=== PATIENT | female | born 1955 | race Caucasian/White ===

== ENCOUNTER 2022-08-27 15:48 | Emergency (ER) | payer MEDICARE, OTHER ==
--- OUTSIDE RECORDS SUMMARY | 2022-08-27 15:52 | XMS REPORT | Continuity of Care Document ---
:1955 Author Organization [facility] t Address [address] [place] [address] Care Team Providers Name Role Phone MICHELLE CHERRI Primary Care Physician Unavailable Hanna Atkinson MD Attending Clinician Marino German CRNA Attending Clinician Thomas Adhikari DPM, Ronald E Attending Clinician NAHUN ENGLISH JR Attending Clinician Unavailable Doctor Unassigned, [place] Attending Clinician Unavailable Pob, [facility] Attending Clinician Unavailable Thomas Adhikari DPM, Ronald E Admitting Clinician NAHUN ENGLISH JR Admitting Clinician Unavailable Payers Payer Name Policy Type Policy Number Effective Date Expiration Date [facility] [id number] 2016 2021 CHOICE 00:00:00 00:00:00 Problems Condition Condition Condition Status Onset Resolution Last Treating Co mments Source Name Details Category Date Date Treatment Clinician Date Gallstone Gallstone Disease Active Overview: Univers pancreatit pancreatit 803 [address] ity of is is 00:00: g of this [place] 00 note Medical might be Branch different from the original. Added automatic ally from request for surgery [id number] Hypokalemi Hypokalemi Disease Active U nivers a a 7-19 ity of 00:00: [place] 00 Medical Branch Nausea Nausea Disease Active 2014-06 Univers 2-10 ity of 00:00: [place] 00 [facility] Abdominal Abdominal Disease Active 2014-06 Uni vers pain pain 2-10 ity of 00:00: [place] 00 [facility] Obesity Obesity Disease Active 2014-06 Univers 2-10 ity of 00:00: [place] 00 [facility] Pancreatit Pancreatit Disease Active 2014-06 U nivers is, is, 2-10 ity [place] [facility] Peripancre Peripancre Disease Active 2014-06 U nivers atic fluid atic fluid 22 it y of [place] [facility] Allergies, Adverse Reactions, Alerts Allergy Allergy Status Severity Reaction(s) Onset Inactive Treating Comm ents Source Name Type Date Date Clinician AMOXICIL DRUG Active ITCHING 2014-06 Univers AKILA INGREDI 07-19 ity of 00:00: [place] 00 [facility] Amoxicil Propensi Active Itching 2014-06 Unive rs akila ty to 07-19 ity of adverse 00:00: [place] reaction 00 [facility] [place] Family History Family Member Diagnosis Comments Start Date Stop Date Source Natural father Heart [facility] Natural father Stroke [facility] Natural mother Cancer [facility] Natural mother Heart [facility] Social History Social Habit Start Date Stop Date Quantity Comments Source History of tobacco Cigarette Smoker [place] of use [facility] History SDOH University o f Alcohol Frequency [facility] History SDOH University o f Alcohol Std Drinks [facility] History SDOH University o f Alcohol Binge [facility] Exposure to Not sure [facility] SARS-CoV-2 (event) [facility] Cigarettes smoked 2021-06-06 2021-06-06 Univers ity of current (pack per 00:00:00 00:00:[address] [facility] ) - Reported Branch Cigarette 2021-06-06 2021-06-06 University of pack-years 00:00:00 00:00:00 [facility] Tobacco use and 2021-06-06 2021-06-06 Never used Universit y of exposure 00:00:00 00:00:00 [facility] Alcohol intake 2021-06-06 2021-06-06 .86 /d University of 00:00:00 00:00:00 [facility] Alcohol Comment 2015-05-19 2015-05-19 Stopped drinking Uni versity of 00:00:00 00:00:00 1 month ago [facility] Sex [birth year] Universit y of 00:00:00 00:00:00 [facility] Smoking Status Start Date Stop Date Source Former smoker 2021-06-06 00:00:00 2021-06-06 00:00:00 [facility] Current every day 2015-05-19 00:00:00 [facility] smoker Medical Branch Medications Ordered Filled Start Stop Current Ordering Indication Dosage Frequency Signature Comments Components Source Medication Medication Date Date Medication? Clinician (SIG) Name Name ALPRAZolam 2020-06 Yes .5mg Take 0.5 Uni vers (XANAX) 0.5 2-15 mg by ity of mg tablet 14:27: mouth 3 [place] 14 (three) Medical times Branch daily. carvedilol 2020-06 Yes 6.25mg Take 6.25 Univers 25 mg 2-15 mg by ity of tablet 14:27: mouth 2 [place] 14 (two) Medical times Branch daily with meals. amLODIPine 2020-06 Yes 5mg Take 5 mg Un devin 5 mg tablet 2-15 by mouth 2 it y of 14:27: (two) [place] 14 times Medical daily. Branch carvedilol 2020-06 Yes 6.25mg Take 6.25 Univers 25 mg 2-14 mg by ity of tablet 06:41: mouth 2 [place] [id number] (two) Medical times Branch daily with meals. carvedilol 2020-06 Yes 6.25mg Take 6.25 Univers 25 mg 2-14 mg by ity of tablet 06:41: mouth 2 [place] [address] (two) Medical times Branch daily with meals. carvedilol 2020-06 Yes 6.25mg Take 6.25 Univers 25 mg 2-14 mg by ity of tablet 06:41: mouth 2 [place] 43 (two) Medical times Branch daily with meals. ALPRAZolam 2020-06 Yes .5mg Take 0.5 Uni vers (XANAX) 0.5 2-14 mg by ity of mg tablet 06:35: mouth 3 [place] 56 (three) Medical times Branch daily. amLODIPine 2020-06 Yes 5mg Take 5 mg Un devin 5 mg tablet 2-14 by mouth 2 it y of 06:35: (two) [place] 56 times Medical daily. Branch ALPRAZolam 2020-06 Yes .5mg Take 0.5 Uni vers (XANAX) 0.5 2-14 mg by ity of mg tablet 06:35: mouth 3 [place] 56 (three) Medical times Branch daily. amLODIPine 2020-06 Yes 5mg Take 5 mg Un devin 5 mg tablet 2-14 by mouth 2 it y of 06:35: (two) [place] 56 times Medical daily. Branch ALPRAZolam 2020-06 Yes .5mg Take 0.5 Uni vers (XANAX) 0.5 2-14 mg by ity of mg tablet 06:35: mouth 3 [place] 56 (three) Medical times Branch daily. amLODIPine 2020-06 Yes 5mg Take 5 mg Un devin 5 mg tablet 2-14 by mouth 2 it y of 06:35: (two) [place] 56 times Medical daily. Branch carvedilol 2020-06 Yes 6.25mg Take 6.25 Univers 25 mg 2-10 mg by ity of tablet 12:39: mouth 2 [place] 40 (two) Medical times Branch daily with meals. carvedilol 2020-06 Yes 6.25mg Take 6.25 Univers 25 mg 2-10 mg by ity of tablet 12:39: mouth 2 [place] 40 (two) Medical times Branch daily with meals. carvedilol 2020-06 Yes 6.25mg Take 6.25 Univers 25 mg 2-10 mg by ity of tablet 12:39: mouth 2 [place] 40 (two) Medical times Branch daily with meals. carvedilol 2020-06 Yes 6.25mg Take 6.25 Univers 25 mg 2-10 mg by ity of tablet 12:39: mouth 2 [place] 40 (two) Medical times Branch daily with meals. carvedilol 2020-06 Yes 6.25mg Take 6.25 Univers 25 mg 2-10 mg by ity of tablet 12:39: mouth 2 [place] 40 (two) Medical times Branch daily with meals. HYDROcodone Yes [id number] 1{tbl} Take 1 Univers -acetaminop 9-01 tablet by ity of hen 5-325 00:00: mouth [place] mg tablet 00 every 6 Medical (six) Branch hours as needed for Pain (scale 4-6) or Pain (scale 7-10). HYDROcodone Yes [id number] 1{tbl} Take 1 Univers -acetaminop 9-01 tablet by ity of hen 5-325 00:00: mouth [place] mg tablet 00 every 6 Medical (six) Branch hours as needed for Pain (scale 4-6) or Pain (scale 7-10). HYDROcodone Yes [id number] 1{tbl} Take 1 Univers -acetaminop 9-01 tablet by ity of hen 5-325 00:00: mouth [place] mg tablet 00 every 6 Medical (six) Branch hours as needed for Pain (scale 4-6) or Pain (scale 7-10). HYDROcodone Yes [id number] 1{tbl} Take 1 Univers -acetaminop 9-01 tablet by ity of hen 5-325 00:00: mouth [place] mg tablet 00 every 6 Medical (six) Branch hours as needed for Pain (scale 4-6) or Pain (scale 7-10). HYDROcodone Yes [id number] 1{tbl} Take 1 Univers -acetaminop 9-01 tablet by ity of hen 5-325 00:00: mouth [place] mg tablet 00 every 6 Medical (six) Branch hours as needed for Pain (scale 4-6) or Pain (scale 7-10). HYDROcodone Yes [id number] 1{tbl} Take 1 Univers -acetaminop 9-01 tablet by ity of hen 5-325 00:00: mouth [place] mg tablet 00 every 6 Medical (six) Branch hours as needed for Pain (scale 4-6) or Pain (scale 7-10). HYDROcodone Yes [id number] 1{tbl} Take 1 Univers -acetaminop 9-01 tablet by ity of hen 5-325 00:00: mouth [place] mg tablet 00 every 6 Medical (six) Branch hours as needed for Pain (scale 4-6) or Pain (scale 7-10). HYDROcodone Yes [id number] 1{tbl} Take 1 Univers -acetaminop 9-01 tablet by ity of hen 5-325 00:00: mouth [place] mg tablet 00 every 6 Medical (six) Branch hours as needed for Pain (scale 4-6) or Pain (scale 7-10). HYDROcodone Yes [id number] 1{tbl} Take 1 Univers -acetaminop 9-01 tablet by ity of hen 5-325 00:00: mouth [place] mg tablet 00 every 6 Medical (six) Branch hours as needed for Pain (scale 4-6) or Pain (scale 7-10). HYDROcodone 2017-0 Yes [id number] 1{tbl} Take 1 Univers -acetaminop 9-01 tablet by ity of hen 5-325 00:00: mouth [place] mg tablet 00 every 6 Medical (six) Branch hours as needed for Pain (scale 4-6) or Pain (scale 7-10). HYDROcodone 2017-0 Yes [id number] 1{tbl} Take 1 Univers -acetaminop 9-01 tablet by ity of hen 5-325 00:00: mouth [place] mg tablet 00 every 6 Medical (six) Branch hours as needed for Pain (scale 4-6) or Pain (scale 7-10). ceFAZolin Yes 1g Univers (ANCEF) 1 g 8-24 ity of in NaCl 13:00: [place] 0.9% (NS) 00 Medical 50 mL Branch MINI-BAG ceFAZolin Yes 1g Univers (ANCEF) 1 g 8-24 ity of in NaCl 13:00: [place] 0.9% (NS) 00 Medical 50 mL Branch MINI-BAG ceFAZolin 0 Yes 1g Univers (ANCEF) 1 g 8-24 ity of in NaCl 13:00: [place] 0.9% (NS) 00 Medical 50 mL Branch MINI-BAG ceFAZolin Yes 1g Univers (ANCEF) 1 g 8-24 ity of in NaCl 13:00: [place] 0.9% (NS) 00 Medical 50 mL Branch MINI-BAG ceFAZolin 0 Yes 1g Univers (ANCEF) 1 g 8-24 ity of in NaCl 13:00: [place] 0.9% (NS) 00 Medical 50 mL Branch MINI-BAG ceFAZolin 2017-0 Yes 1g Univers (ANCEF) 1 g 8-24 ity of in NaCl 13:00: [place] 0.9% (NS) 00 Medical 50 mL Branch MINI-BAG ceFAZolin 0 Yes 1g Univers (ANCEF) 1 g 8-24 ity of in NaCl 13:00: [place] 0.9% (NS) 00 Medical 50 mL Branch MINI-BAG ceFAZolin 2017-0 Yes 1g Univers (ANCEF) 1 g 8-24 ity of in NaCl 13:00: [place] 0.9% (NS) 00 Medical 50 mL Branch MINI-BAG ALPRAZolam 2017-0 Yes .5mg Take 0.5 Uni vers (XANAX) 0.5 8-17 mg by ity of mg tablet 14:27: mouth 3 [place] 37 (three) Medical times Branch daily. amLODIPine 2017-0 Yes 5mg Take 5 mg Un devin 5 mg tablet 8-17 by mouth 2 it y of 14:27: (two) [place] 37 times Medical daily. Branch ALPRAZolam 2017-0 Yes .5mg Take 0.5 Uni vers (XANAX) 0.5 8-17 mg by ity of mg tablet 14:27: mouth 3 [place] 37 (three) Medical times Branch daily. amLODIPine 2017-0 Yes 5mg Take 5 mg Un devin 5 mg tablet 8-17 by mouth 2 it y of 14:27: (two) [place] 37 times Medical daily. Branch ALPRAZolam 2017-0 Yes .5mg Take 0.5 Uni vers (XANAX) 0.5 8-17 mg by ity of mg tablet 14:27: mouth 3 [place] 37 (three) Medical times Branch daily. amLODIPine 2017-0 Yes 5mg Take 5 mg Un devin 5 mg tablet 8-17 by mouth 2 it y of 14:27: (two) [place] 37 times Medical daily. Branch ALPRAZolam 2017-0 Yes .5mg Take 0.5 Uni vers (XANAX) 0.5 8-17 mg by ity of mg tablet 14:27: mouth 3 [place] 37 (three) Medical times Branch daily. amLODIPine 2017-0 Yes 5mg Take 5 mg Un devin 5 mg tablet 8-17 by mouth 2 it y of 14:27: (two) [place] 37 times Medical daily. Branch ALPRAZolam 2017-0 Yes .5mg Take 0.5 Uni vers (XANAX) 0.5 8-17 mg by ity of mg tablet 14:27: mouth 3 [place] 37 (three) Medical times Branch daily. carvedilol 2017-0 Yes 25mg Take 25 mg U nivers 25 mg 8-17 by mouth 2 ity of tablet 14:27: (two) [place] 37 times Medical daily with Branch meals. amLODIPine 2017-0 Yes 5mg Take 5 mg Un devin 5 mg tablet 8-17 by mouth 2 it y of 14:27: (two) [place] 37 times Medical daily. Branch ALPRAZolam 2017-0 Yes .5mg Take 0.5 Uni vers (XANAX) 0.5 8-17 mg by ity of mg tablet 14:27: mouth 3 [place] 37 (three) Medical times Branch daily. carvedilol 2017-0 Yes 25mg Take 25 mg U nivers 25 mg 8-17 by mouth 2 ity of tablet 14:27: (two) [place] 37 times Medical daily with Branch meals. amLODIPine 2017-0 Yes 5mg Take 5 mg Un devin 5 mg tablet 8-17 by mouth 2 it y of 14:27: (two) [place] 37 times Medical daily. Branch ALPRAZolam 2017-0 Yes .5mg Take 0.5 Uni vers (XANAX) 0.5 8-17 mg by ity of mg tablet 14:27: mouth 3 [place] 37 (three) Medical times Branch daily. amLODIPine 2017-0 Yes 5mg Take 5 mg Un devin 5 mg tablet 8-17 by mouth 2 it y of 14:27: (two) [place] 37 times Medical daily. Branch acetaminoph 2017-0 Yes 1{tbl} Take 1 Un devin en-codeine 8-17 tablet by ity of 300-30 mg 00:00: mouth [place] tablet 00 every 4 Medical (four) Branch hours as needed for Pain (scale 1-3), Pain (scale 4-6) or Pain (scale 7-10). ibuprofen 2017-0 Yes 600mg Take 1 Unive rs 600 mg 8-17 tablet by ity of tablet 00:00: mouth 2 [place] 00 (two) Medical times Branch daily with meals. docusate 2017-0 Yes 100mg Take 1 Univer s 100 mg 8-17 capsule by ity of capsule 00:00: mouth [place] 00 daily. Medical Branch acetaminoph 2017-0 Yes 1{tbl} Take 1 Un devin en-codeine 8-17 tablet by ity of 300-30 mg 00:00: mouth [place] tablet 00 every 4 Medical (four) Branch hours as needed for Pain (scale 1-3), Pain (scale 4-6) or Pain (scale 7-10). ibuprofen 2017-0 Yes 600mg Take 1 Unive rs 600 mg 8-17 tablet by ity of tablet 00:00: mouth 2 [place] 00 (two) Medical times Branch daily with meals. docusate 2017-0 Yes 100mg Take 1 Univer s 100 mg 8-17 capsule by ity of capsule 00:00: mouth [place] 00 daily. Medical Branch acetaminoph Yes 1{tbl} Take 1 Un devin en-codeine 8-17 tablet by ity of 300-30 mg 00:00: mouth [place] tablet 00 every 4 Medical (four) Branch hours as needed for Pain (scale 1-3), Pain (scale 4-6) or Pain (scale 7-10). ibuprofen Yes 600mg Take 1 Unive rs 600 mg 8-17 tablet by ity of tablet 00:00: mouth 2 [place] 00 (two) Medical times Branch daily with meals. docusate 0 Yes 100mg Take 1 Univer s 100 mg 8-17 capsule by ity of capsule 00:00: mouth [place] 00 daily. Medical Branch acetaminoph Yes 1{tbl} Take 1 Un devin en-codeine 8-17 tablet by ity of 300-30 mg 00:00: mouth [place] tablet 00 every 4 Medical (four) Branch hours as needed for Pain (scale 1-3), Pain (scale 4-6) or Pain (scale 7-10). ibuprofen 0 Yes 600mg Take 1 Unive rs 600 mg 8-17 tablet by ity of tablet 00:00: mouth 2 [place] 00 (two) Medical times Branch daily with meals. docusate [id number] Yes 100mg Take 1 Univer s 100 mg 8-17 capsule by ity of capsule 00:00: mouth [place] 00 daily. Medical Branch acetaminoph Yes 1{tbl} Take 1 Un devin en-codeine 8-17 tablet by ity of 300-30 mg 00:00: mouth [place] tablet 00 every 4 Medical (four) Branch hours as needed for Pain (scale 1-3), Pain (scale 4-6) or Pain (scale 7-10). ibuprofen 2016-0 Yes 600mg Take 1 Unive rs 600 mg 8-17 tablet by ity of tablet 00:00: mouth 2 [place] 00 (two) Medical times Branch daily with meals. docusate 2017-0 Yes 100mg Take 1 Univer s 100 mg 8-17 capsule by ity of capsule 00:00: mouth [place] 00 daily. Medical Branch acetaminoph 2017-0 Yes 1{tbl} Take 1 Un devin en-codeine 8-17 tablet by ity of 300-30 mg 00:00: mouth [place] tablet 00 every 4 Medical (four) Branch hours as needed for Pain (scale 1-3), Pain (scale 4-6) or Pain (scale 7-10). ibuprofen 2017-0 Yes 600mg Take 1 Unive rs 600 mg 8-17 tablet by ity of tablet 00:00: mouth 2 [place] 00 (two) Medical times Branch daily with meals. docusate 2017-0 Yes 100mg Take 1 Univer s 100 mg 8-17 capsule by ity of capsule 00:00: mouth [place] 00 daily. Medical Branch acetaminoph 0 Yes 1{tbl} Take 1 Un devin en-codeine 8-17 tablet by ity of 300-30 mg 00:00: mouth [place] tablet 00 every 4 Medical (four) Branch hours as needed for Pain (scale 1-3), Pain (scale 4-6) or Pain (scale 7-10). ibuprofen 2016-0 Yes 600mg Take 1 Unive rs 600 mg 8-17 tablet by ity of tablet 00:00: mouth 2 [place] 00 (two) Medical times Branch daily with meals. docusate 2017-0 Yes 100mg Take 1 Univer s 100 mg 8-17 capsule by ity of capsule 00:00: mouth [place] 00 daily. Medical Branch acetaminoph 0 Yes 1{tbl} Take 1 Un devin en-codeine 8-17 tablet by ity of 300-30 mg 00:00: mouth [place] tablet 00 every 4 Medical (four) Branch hours as needed for Pain (scale 1-3), Pain (scale 4-6) or Pain (scale 7-10). ibuprofen 2017-0 Yes 600mg Take 1 Unive rs 600 mg 8-17 tablet by ity of tablet 00:00: mouth 2 [place] 00 (two) Medical times Branch daily with meals. docusate 2017-0 Yes 100mg Take 1 Univer s 100 mg 8-17 capsule by ity of capsule 00:00: mouth [place] 00 daily. Medical Branch acetaminoph [id number] Yes 1{tbl} Take 1 Un devin en-codeine 8-17 tablet by ity of 300-30 mg 00:00: mouth [place] tablet 00 every 4 Medical (four) Branch hours as needed for Pain (scale 1-3), Pain (scale 4-6) or Pain (scale 7-10). ibuprofen 2017-0 Yes 600mg Take 1 Unive rs 600 mg 8-17 tablet by ity of tablet 00:00: mouth 2 [place] 00 (two) Medical times Branch daily with meals. docusate 2017-0 Yes 100mg Take 1 Univer s 100 mg 8-17 capsule by ity of capsule 00:00: mouth [place] 00 daily. Medical Branch acetaminoph Yes 1{tbl} Take 1 Un devin en-codeine 8-17 tablet by ity of 300-30 mg 00:00: mouth [place] tablet 00 every 4 Medical (four) Branch hours as needed for Pain (scale 1-3), Pain (scale 4-6) or Pain (scale 7-10). ibuprofen 2017-0 Yes 600mg Take 1 Unive rs 600 mg 8-17 tablet by ity of tablet 00:00: mouth 2 [place] 00 (two) Medical times Branch daily with meals. docusate 2017-0 Yes 100mg Take 1 Univer s 100 mg 8-17 capsule by ity of capsule 00:00: mouth [place] 00 daily. Medical Branch acetaminoph 0 Yes 1{tbl} Take 1 Un devin en-codeine 8-17 tablet by ity of 300-30 mg 00:00: mouth [place] tablet 00 every 4 Medical (four) Branch hours as needed for Pain (scale 1-3), Pain (scale 4-6) or Pain (scale 7-10). ibuprofen 2017-0 Yes 600mg Take 1 Unive rs 600 mg 8-17 tablet by ity of tablet 00:00: mouth 2 [place] 00 (two) Medical times Branch daily with meals. docusate 2017-0 Yes 100mg Take 1 Univer s 100 mg 8-17 capsule by ity of capsule 00:00: mouth [place] 00 daily. Medical Branch acetaminoph Yes 1{tbl} Take 1 Un devin en-codeine 8-09 tablet by ity of (TYLENOL-CO 00:00: mouth [place] DEINE #3) 00 every 4 Medical 300-30 mg (four) Branch tablet hours as needed for Pain (scale 1-3). acetaminoph 2016-0 Yes 1{tbl} Take 1 Un devin en-codeine 8-09 tablet by ity of (TYLENOL-CO 00:00: mouth [place] DEINE #3) 00 every 4 Medical 300-30 mg (four) Branch tablet hours as needed for Pain (scale 1-3). acetaminoph 0 Yes 1{tbl} Take 1 Un devin en-codeine 8-09 tablet by ity of (TYLENOL-CO 00:00: mouth [place] DEINE #3) 00 every 4 Medical 300-30 mg (four) Branch tablet hours as needed for Pain (scale 1-3). acetaminoph Yes 1{tbl} Take 1 Un devin en-codeine 8-09 tablet by ity of (TYLENOL-CO 00:00: mouth [place] DEINE #3) 00 every 4 Medical 300-30 mg (four) Branch tablet hours as needed for Pain (scale 1-3). acetaminoph Yes 1{tbl} Take 1 Un devin en-codeine 8-09 tablet by ity of (TYLENOL-CO 00:00: mouth [place] DEINE #3) 00 every 4 Medical 300-30 mg (four) Branch tablet hours as needed for Pain (scale 1-3). acetaminoph 0 Yes 1{tbl} Take 1 Un devin en-codeine 8-09 tablet by ity of (TYLENOL-CO 00:00: mouth [place] DEINE #3) 00 every 4 Medical 300-30 mg (four) Branch tablet hours as needed for Pain (scale 1-3). acetaminoph 0 Yes 1{tbl} Take 1 Un devin en-codeine 8-09 tablet by ity of (TYLENOL-CO 00:00: mouth [place] DEINE #3) 00 every 4 Medical 300-30 mg (four) Branch tablet hours as needed for Pain (scale 1-3). acetaminoph 0 Yes 1{tbl} Take 1 Un devin en-codeine 8-09 tablet by ity of (TYLENOL-CO 00:00: mouth [place] DEINE #3) 00 every 4 Medical 300-30 mg (four) Branch tablet hours as needed for Pain (scale 1-3). acetaminoph 2017-0 Yes 1{tbl} Take 1 Un devin en-codeine 8-09 tablet by ity of (TYLENOL-CO 00:00: mouth [place] DEINE #3) 00 every 4 Medical 300-30 mg (four) Branch tablet hours as needed for Pain (scale 1-3). acetaminoph 2017-0 Yes 1{tbl} Take 1 Un devin en-codeine 8-09 tablet by ity of (TYLENOL-CO 00:00: mouth [place] DEINE #3) 00 every 4 Medical 300-30 mg (four) Branch tablet hours as needed for Pain (scale 1-3). acetaminoph 2017-0 Yes 1{tbl} Take 1 Un devin en-codeine 8-09 tablet by ity of (TYLENOL-CO 00:00: mouth [place] DEINE #3) 00 every 4 Medical 300-30 mg (four) Branch tablet hours as needed for Pain (scale 1-3). naproxen 2017-0 Yes 500mg Take 1 Univer s 500 mg 8-01 tablet by ity of tablet 00:00: mouth 2 [place] 00 (two) Medical times Branch daily with meals. gabapentin 2017-0 Yes 300mg Take 1 Univ ers (NEURONTIN) 8-01 capsule by it y of 300 mg 00:00: mouth 3 [place] capsule 00 (three) Medical times Branch daily. acetaminoph 2017-0 Yes 1{tbl} Take 1 Un devin en-codeine 8-01 tablet by ity of (TYLENOL-CO 00:00: mouth [place] DEINE #3) 00 every 6 Medical 300-30 mg (six) Branch tablet hours as needed for Pain (scale 1-3). naproxen 2017-0 Yes 500mg Take 1 Univer s 500 mg 8-01 tablet by ity of tablet 00:00: mouth 2 [place] 00 (two) Medical times Branch daily with meals. gabapentin 2017-0 Yes 300mg Take 1 Univ ers (NEURONTIN) 8-01 capsule by it y of 300 mg 00:00: mouth 3 [place] capsule 00 (three) Medical times Branch daily. acetaminoph 2017-0 Yes 1{tbl} Take 1 Un devin en-codeine 8-01 tablet by ity of (TYLENOL-CO 00:00: mouth [place] DEINE #3) 00 every 6 Medical 300-30 mg (six) Branch tablet hours as needed for Pain (scale 1-3). naproxen 2017-0 Yes 500mg Take 1 Univer s 500 mg 8-01 tablet by ity of tablet 00:00: mouth 2 [place] 00 (two) Medical times Branch daily with meals. gabapentin 2017-0 Yes 300mg Take 1 Univ ers (NEURONTIN) 8-01 capsule by it y of 300 mg 00:00: mouth 3 [place] capsule 00 (three) Medical times Branch daily. acetaminoph 2017-0 Yes 1{tbl} Take 1 Un devin en-codeine 8-01 tablet by ity of (TYLENOL-CO 00:00: mouth [place] DEINE #3) 00 every 6 Medical 300-30 mg (six) Branch tablet hours as needed for Pain (scale 1-3). naproxen 2017-0 Yes 500mg Take 1 Univer s 500 mg 8-01 tablet by ity of tablet 00:00: mouth 2 [place] 00 (two) Medical times Branch daily with meals. gabapentin 2017-0 Yes 300mg Take 1 Univ ers (NEURONTIN) 8-01 capsule by it y of 300 mg 00:00: mouth 3 [place] capsule 00 (three) Medical times Branch daily. acetaminoph 2017-0 Yes 1{tbl} Take 1 Un devin en-codeine 8-01 tablet by ity of (TYLENOL-CO 00:00: mouth [place] DEINE #3) 00 every 6 Medical 300-30 mg (six) Branch tablet hours as needed for Pain (scale 1-3). naproxen 2017-0 Yes 500mg Take 1 Univer s 500 mg 8-01 tablet by ity of tablet 00:00: mouth 2 [place] 00 (two) Medical times Branch daily with meals. gabapentin 2017-0 Yes 300mg Take 1 Univ ers (NEURONTIN) 8-01 capsule by it y of 300 mg 00:00: mouth 3 [place] capsule 00 (three) Medical times Branch daily. acetaminoph 2017-0 Yes 1{tbl} Take 1 Un devin en-codeine 8-01 tablet by ity of (TYLENOL-CO 00:00: mouth [place] DEINE #3) 00 every 6 Medical 300-30 mg (six) Branch tablet hours as needed for Pain (scale 1-3). naproxen 2017-0 Yes 500mg Take 1 Univer s 500 mg 8-01 tablet by ity of tablet 00:00: mouth 2 [place] 00 (two) Medical times Branch daily with meals. gabapentin 2017-0 Yes 300mg Take 1 Univ ers (NEURONTIN) 8-01 capsule by it y of 300 mg 00:00: mouth 3 [place] capsule 00 (three) Medical times Branch daily. acetaminoph 2017-0 Yes 1{tbl} Take 1 Un devin en-codeine 8-01 tablet by ity of (TYLENOL-CO 00:00: mouth [place] DEINE #3) 00 every 6 Medical 300-30 mg (six) Branch tablet hours as needed for Pain (scale 1-3). naproxen 2017-0 Yes 500mg Take 1 Univer s 500 mg 8-01 tablet by ity of tablet 00:00: mouth 2 [place] 00 (two) Medical times Branch daily with meals. gabapentin 2017-0 Yes 300mg Take 1 Univ ers (NEURONTIN) 8-01 capsule by it y of 300 mg 00:00: mouth 3 [place] capsule 00 (three) Medical times Branch daily. acetaminoph 2017-0 Yes 1{tbl} Take 1 Un devin en-codeine 8-01 tablet by ity of (TYLENOL-CO 00:00: mouth [place] DEINE #3) 00 every 6 Medical 300-30 mg (six) Branch tablet hours as needed for Pain (scale 1-3). naproxen 2017-0 Yes 500mg Take 1 Univer s 500 mg 8-01 tablet by ity of tablet 00:00: mouth 2 [place] 00 (two) Medical times Branch daily with meals. gabapentin 2017-0 Yes 300mg Take 1 Univ ers (NEURONTIN) 8-01 capsule by it y of 300 mg 00:00: mouth 3 [place] capsule 00 (three) Medical times Branch daily. acetaminoph 2017-0 Yes 1{tbl} Take 1 Un devin en-codeine 8-01 tablet by ity of (TYLENOL-CO 00:00: mouth [place] DEINE #3) 00 every 6 Medical 300-30 mg (six) Branch tablet hours as needed for Pain (scale 1-3). naproxen 2017-0 Yes 500mg Take 1 Univer s 500 mg 8-01 tablet by ity of tablet 00:00: mouth 2 [place] 00 (two) Medical times Branch daily with meals. gabapentin 2017-0 Yes 300mg Take 1 Univ ers (NEURONTIN) 8-01 capsule by it y of 300 mg 00:00: mouth 3 [place] capsule 00 (three) Medical times Branch daily. acetaminoph 2017-0 Yes 1{tbl} Take 1 Un devin en-codeine 8-01 tablet by ity of (TYLENOL-CO 00:00: mouth [place] DEINE #3) 00 every 6 Medical 300-30 mg (six) Branch tablet hours as needed for Pain (scale 1-3). naproxen 2017-0 Yes 500mg Take 1 Univer s 500 mg 8-01 tablet by ity of tablet 00:00: mouth 2 [place] 00 (two) Medical times Branch daily with meals. gabapentin 2017-0 Yes 300mg Take 1 Univ ers (NEURONTIN) 8-01 capsule by it y of 300 mg 00:00: mouth 3 [place] capsule 00 (three) Medical times Branch daily. acetaminoph 2017-0 Yes 1{tbl} Take 1 Un devin en-codeine 8-01 tablet by ity of (TYLENOL-CO 00:00: mouth [place] DEINE #3) 00 every 6 Medical 300-30 mg (six) Branch tablet hours as needed for Pain (scale 1-3). naproxen 2017-0 Yes 500mg Take 1 Univer s 500 mg 8-01 tablet by ity of tablet 00:00: mouth 2 [place] 00 (two) Medical times Branch daily with meals. gabapentin 2017-0 Yes 300mg Take 1 Univ ers (NEURONTIN) 8-01 capsule by it y of 300 mg 00:00: mouth 3 [place] capsule 00 (three) Medical times Branch daily. acetaminoph 2017-0 Yes 1{tbl} Take 1 Un devin en-codeine 8-01 tablet by ity of (TYLENOL-CO 00:00: mouth [place] DEINE #3) 00 every 6 Medical 300-30 mg (six) Branch tablet hours as needed for Pain (scale 1-3). metroNIDAZO 2017-0 Yes 500mg Take 1 Uni vers LE (FLAGYL) 7-22 tablet by ity of 500 mg 00:00: mouth [place] tablet 00 every 8 Medical (eight) Branch hours. acetaminoph 2017-0 Yes 1{tbl} Take 1 Un devin en-codeine 7-22 tablet by ity of 300-30 mg 00:00: mouth [place] tablet 00 every 4 Medical (four) Branch hours as needed for Pain (scale 7-10). metroNIDAZO 2017-0 Yes 500mg Take 1 Uni vers LE (FLAGYL) 7-22 tablet by ity of 500 mg 00:00: mouth [place] tablet 00 every 8 Medical (eight) Branch hours. acetaminoph 2017-0 Yes 1{tbl} Take 1 Un devin en-codeine 7-22 tablet by ity of 300-30 mg 00:00: mouth [place] tablet 00 every 4 Medical (four) Branch hours as needed for Pain (scale 7-10). metroNIDAZO 2017-0 Yes 500mg Take 1 Uni vers LE (FLAGYL) 7-22 tablet by ity of 500 mg 00:00: mouth [place] tablet 00 every 8 Medical (eight) Branch hours. acetaminoph 2017-0 Yes 1{tbl} Take 1 Un devin en-codeine 7-22 tablet by ity of 300-30 mg 00:00: mouth [place] tablet 00 every 4 Medical (four) Branch hours as needed for Pain (scale 7-10). metroNIDAZO 2017-0 Yes 500mg Take 1 Uni vers LE (FLAGYL) 7-22 tablet by ity of 500 mg 00:00: mouth [place] tablet 00 every 8 Medical (eight) Branch hours. acetaminoph 2017-0 Yes 1{tbl} Take 1 Un devin en-codeine 7-22 tablet by ity of 300-30 mg 00:00: mouth [place] tablet 00 every 4 Medical (four) Branch hours as needed for Pain (scale 7-10). metroNIDAZO 2017-0 Yes 500mg Take 1 Uni vers LE (FLAGYL) 7-22 tablet by ity of 500 mg 00:00: mouth [place] tablet 00 every 8 Medical (eight) Branch hours. acetaminoph 2017-0 Yes 1{tbl} Take 1 Un devin en-codeine 7-22 tablet by ity of 300-30 mg 00:00: mouth [place] tablet 00 every 4 Medical (four) Branch hours as needed for Pain (scale 7-10). metroNIDAZO 2017-0 Yes 500mg Take 1 Uni vers LE (FLAGYL) 7-22 tablet by ity of 500 mg 00:00: mouth [place] tablet 00 every 8 Medical (eight) Branch hours. acetaminoph 2017-0 Yes 1{tbl} Take 1 Un devin en-codeine 7-22 tablet by ity of 300-30 mg 00:00: mouth [place] tablet 00 every 4 Medical (four) Branch hours as needed for Pain (scale 7-10). metroNIDAZO 2017-0 Yes 500mg Take 1 Uni vers LE (FLAGYL) 7-22 tablet by ity of 500 mg 00:00: mouth [place] tablet 00 every 8 Medical (eight) Branch hours. acetaminoph 2017- Yes 1{tbl} Take 1 Un devin en-codeine 7-22 tablet by ity of 300-30 mg 00:00: mouth [place] tablet 00 every 4 Medical (four) Branch hours as needed for Pain (scale 7-10). metroNIDAZO 2017-0 Yes 500mg Take 1 Uni vers LE (FLAGYL) 7-22 tablet by ity of 500 mg 00:00: mouth [place] tablet 00 every 8 Medical (eight) Branch hours. acetaminoph 2017-0 Yes 1{tbl} Take 1 Un devin en-codeine 7-22 tablet by ity of 300-30 mg 00:00: mouth [place] tablet 00 every 4 Medical (four) Branch hours as needed for Pain (scale 7-10). metroNIDAZO 2017-0 Yes 500mg Take 1 Uni vers LE (FLAGYL) 7-22 tablet by ity of 500 mg 00:00: mouth [place] tablet 00 every 8 Medical (eight) Branch hours. acetaminoph 20170 Yes 1{tbl} Take 1 Un devin en-codeine 7-22 tablet by ity of 300-30 mg 00:00: mouth [place] tablet 00 every 4 Medical (four) Branch hours as needed for Pain (scale 7-10). metroNIDAZO 2017-0 Yes 500mg Take 1 Uni vers LE (FLAGYL) 7-22 tablet by ity of 500 mg 00:00: mouth [place] tablet 00 every 8 Medical (eight) Branch hours. acetaminoph 2017-0 Yes 1{tbl} Take 1 Un devin en-codeine 7-22 tablet by ity of 300-30 mg 00:00: mouth [place] tablet 00 every 4 Medical (four) Branch hours as needed for Pain (scale 7-10). metroNIDAZO 2017-0 Yes 500mg Take 1 Uni vers LE (FLAGYL) 7-22 tablet by ity of 500 mg 00:00: mouth [place] tablet 00 every 8 Medical (eight) Branch hours. acetaminoph 2017-0 Yes 1{tbl} Take 1 Un devin en-codeine 7-22 tablet by ity of 300-30 mg 00:00: mouth [place] tablet 00 every 4 Medical (four) Branch hours as needed for Pain (scale 7-10). Immunizations Ordered Filled Immunization Date Status Comments [facility] e Immunization Name Name SARS-COV-2 COVID-19 2020-09-06 Completed Unive rsity of [place]AK[place]/J&J VACCINE 00:00:00 [facility] SARS-COV-2 COVID-19 2020-09-06 Completed Unive rsity of [place]AK[place]/J&J VACCINE 00:00:00 [facility] SARS-COV-2 COVID-19 2020-09-06 Completed Unive rsity of [place]AK[place]/J&J VACCINE 00:00:00 [facility] SARS-COV-2 COVID-19 2020-09-06 Completed Unive rsity of [place]AK[place]/J&J VACCINE 00:00:00 [facility] Vital Signs Vital Name Observation Time Observation Value Comments Source Systolic blood 2021-06-10 12:37:00 159 mm[Hg] Univer sity of pressure [facility] Diastolic blood 2021-06-10 12:37:00 88 mm[Hg] Unive rsity of pressure [facility] Heart rate 2021-06-10 12:37:00 82 /min [facility] Body temperature 2021-06-10 12:37:00 37.17 [facility] Respiratory rate 2021-06-10 12:37:00 18 /min [facility] Oxygen saturation in 2021-06-10 12:37:00 99 /min [facility] Arterial blood by [facility] [place] [facility] Pulse oximetry Branch Body height 2021-06-02 16:45:00 165.1 cm [facility] Body weight 2021-06-02 16:45:00 66 kg [facility] BMI 2021-06-02 16:45:00 24.21 kg/m2 [facility] Systolic blood 2021-06-10 12:37:00 159 mm[Hg] Univer sity of pressure [facility] Diastolic blood 2021-06-10 12:37:00 88 mm[Hg] [facility] pressure [facility] Heart rate 2021-06-10 12:37:00 82 /min [facility] Body temperature 2021-06-10 12:37:00 37.17 [facility] rate 2021-06-10 12:37:00 18 /min [facility] Oxygen saturation in 2021-06-10 12:37:00 99 /min [facility] Arterial blood by [facility] [place] [facility] Pulse oximetry [place] Body height 2021-06-02 16:45:00 165.1 cm [facility] Body weight 2021-06-02 16:45:00 66 kg [facility] BMI 2021-06-02 16:45:00 24.21 kg/m2 [facility] Procedures Procedure Date / Time Performing Clinician Source Performed DAY SURGERY - [facility] 2021-06-10 06:01:00 Doctor Unassigned, [facility] [place] [facility] [place] SURGERY - [facility] 2021-06-10 06:01:00 Doctor Unassigned, [facility] Name Medical [place] CBC WITH DIFF 2021-06-09 15:50:00 Nahun English [facility] COMP. METABOLIC PANEL 2021-06-09 15:50:00 Nahun English [facility] ([id number]) [facility] PROTHROMBIN TIME / INR 2021-06-09 15:50:00 [facility] ACTIVATED PARTIAL THRMPLAS 2021-06-09 15:50:00 [facility] (ID NOW RAPID 2021-06-09 15:49:00 [facility] TESTING) Medical Branch LAB ONLY COVID 2021-06-09 15:49:00 Nahun English [facility] XR CHEST 2 VW 2021-06-09 15:20:08 Nahun English [facility] XR CHEST 2 VW 2021-06-09 15:20:08 Nahun English [facility] CONSENT/REFUSAL FOR 2021-06-09 14:49:02 Doctor [facility], [facility] DIAGNOSIS AND TREATMENT [place] [facility] ASSIGNMENT OF BENEFITS 2021-06-09 14:48:47 Doctor Unassigned, [facility] [place] [facility] CONSENT/REFUSAL FOR 2021-06-09 14:48:20 Doctor [facility]assigned, [facility] DIAGNOSIS AND TREATMENT [place] [facility] ASSIGNMENT OF BENEFITS 2021-06-09 14:48:03 [facility] [place] [facility] ASSIGNMENT OF BENEFITS 2021-06-09 14:48:03 Doctor Unassigned, [facility] [place] [facility] EXTERNAL PROVIDER RECORDS 2021-05-29 06:01:00 Doctor Gemassigned, [facility] [place] [facility] EXTERNAL PROVIDER RECORDS 2021-05-29 06:01:00 Doctor Unassigned, [facility] [place] [facility] VITAMIN D, 25-OH 2021-04-29 19:43:00 Nahun English [facility] [place] NO SHOW OR MISSED 2021-04-29 19:30:16 Doctor Damien, [facility] APPOINTMENT POLICY [place] [facility] h ACKNOWLEDGEMENT [facility] PATIENT FINANCIAL 2021-04-29 19:29:46 Doctor Damien, [facility] POLICY [place] [facility] NOTICE OF BILLING 2021-04-29 19:28:39 Doctor Damien, [facility] PRACTICES FOR MEDICARE [place] [facility] ranch PATIENTS NOTICE OF PRIVACY 2021-04-29 19:28:09 Doctor Damien, [facility] PRACTICES [place] [facility] CONSENT/REFUSAL FOR 2021-04-29 19:27:16 Doctor Damien, [facility] DIAGNOSIS AND TREATMENT [place] [facility] ASSIGNMENT OF BENEFITS 2021-04-29 19:26:58 Doctor [facility]igned, [facility] [place] [facility] ASSIGNMENT OF BENEFITS 2021-04-29 19:26:58 Doctor Gemassagustin, [facility] [place] [facility] PHYSICIAN ORDERS 2021-04-29 05:01:00 Doctor Damien, [facility] [place] [facility] Encounters Start End Encounter Admission Attending Care Care Encounter Source Date/Time Date/Time Type Type Clinicians Facility Department ID 2021-06-10 2021-06-10 Anesthesia Hanna Atkinson 1.2.840.1 [id number] Univers 08:47:35 08:47:35 Event Marino German 27868.1.1 ity of 3.104.2.7 [place] .3.660204 Medica l .8 [place] 2021-06-10 2021-06-10 [facility] 1.2.840.114 [id number] Univers 06:35:00 07:30:00 Encounter Nahun LAMAS 350.1.13.10 ity of [place]686 [place] SUR[place]ICAL [id number] Med [facility] 071 [place] 2021-06-10 2021-06-10 [facility] [id number] Univers 06:35:00 07:30:00 NAHUN whitaker [facility] 2021-06-10 2021-06-10 Orders Doctor 1.2.840.9 [id number] Univers 00:00:00 00:00:00 Only Unassigned, 05696.1.1 ity of [place] 3.104.2.7 [place] .3.406957 Medica l .8 [place] 2021-06-09 2021-06-09 [facility], 1.2.840.6 [id number] Univers 08:53:08 23:59:00 Encounter Nahun Jo 30318.1.1 i ty of 3.104.2.7 [place] .3.260790 Medica l .8 [place] 2021-06-09 2021-06-09 Outpatient Walker ENGLISH JR [facility] [id number] Univers 08:51:36 08:52:00 NAHUN nataliyasri of [facility] 2021-06-09 2021-06-09 [facility] [place] 1.2.840.1 [id number] Univers 08:45:00 08:52:00 Encounter Nahun Jo 43919.1.1 i ty of 3.104.2.7 [place] .3.687341 Medica l .8 [place] 2021-06-09 2021-06-09 Audiology Technician Nahun English 1.2.840.1 [id number] Univers 08:15:00 08:30:00 Visit [facility], [facility] Lab Main 95969.1.1 ity of 3.104.2.7 [place] .3.557970 Medica l .8 [place] 2021-06-09 2021-06-09 Abstract Thomas 1.2.840.0 [id number] Univers 00:00:00 00:00:00 Nahun Fran 23741.1.1 ity of 3.104.2.7 [place] .3.795763 Medica l .8 [place] 2021-06-09 2021-06-09 Orders Doctor 1.2.840.8 [id number] Univers 00:00:00 00:00:00 Only Unassigned, 97988.1.1 ity of [place] 3.104.2.7 [place] .3.505347 Medica l .8 [place] 2021-06-06 2021-06-06 Travel 1.2.840.1 [id number] [id number] Univers 00:00:00 00:00:00 14441.1.1 350.1.13.10 ity of 3.104.2.7 4.[place].7.3.698 [place] .3.232177 084.8 Medica l .8 [place] 2021-04-29 2021-04-29 Audiology Technician Nahun English 1.2.840.1 [id number] Univers 14:15:00 14:30:00 Visit [facility], [facility] Lab Main 55455.1.1 ity of 3.104.2.7 [place] .3.826637 Medica l .8 [place] 2021-04-29 2021-04-29 Outpatient R THOMAS LORENZO, [facility] [id number] Univers 14:15:00 14:15:00 NAHUN ity of [facility] 2021-04-29 2021-04-29 Orders Doctor 1.2.840.6 [id number] Univers 00:00:00 00:00:00 Only Unassigned, 79134.1.1 ity of [place] 3.104.2.7 [place] .3.882823 [facility] l .8 Branch Results Test Description Test Time Test Comments Results Result Comments Source CBC WITH DIFF 2021-06-09 19:15:47 Test Item Value Reference Range Interpretation Comme nts WBC (test code = 6690-2) See_Comment [A utomated message] The system which ge nerated this result transmit violet reference range: 4.30 - 1 1.10 10*3/?L. The reference r ravinder was not used to interpr et this result as normal/abnor mal. RBC (test code = 789-8) See_Comment L [Au tomated message] The system which ge nerated this result transmit violet reference range: 3.93 - 5 .25 10*6/?L. The reference r ravinder was not used to interpr et this result as normal/abnor mal. HGB (test code = 718-7) 12.9 g/dL 11.6-15.0 HCT (test code = 4544-3) 39.0 % 35.7-45.2 MCV (test code = 787-2) 105.1 fL 80.6-95.5 H MCH (test code = 785-6) 34.8 pg 25.9-32.8 H MCHC (test code = 786-4) 33.1 g/dL 31.6-35.1 RDW-SD (test code = 00065-2) 49.8 fL 39.0-49.9 RDW-CV (test code = 788-0) 12.9 % 12.0-15.5 PLT (test code = 777-3) See_Comment L [Au tomated message] The system which ge nerated this result transmit violet reference range: 166 - 35 8 10*3/?L. The reference range was not used to interpret th is result as normal/abnormal . MPV (test code = 28902-8) 11.3 fL 9.5-12.9 NRBC/100 WBC (test code = See_Comment [ Automated message] The [id number]) system which ge nerated this result transmit violet reference range: 0.0 - 10 .0 /100 WBCs. The reference r ravinder was not used to interpr et this result as normal/abnor mal. NRBC x10^3 (test code = <0.01 See_Comment [Au tomated message] The 8226380077) system which [employer] nerated this result transmit violet reference range: 10*3/?L. The reference range was not u sed to interpret this result as normal/abnormal . GRAN MAT (NEUT) % (test code 55.5 % = 770-8) IMM GRAN % (test code = 0.40 % 0679805397) LYMPH % (test code = 736-9) 31.0 % MONO % (test code = 5905-5) 11.3 % EOS % (test code = 713-8) 1.1 % BASO % (test code = 706-2) 0.7 % GRAN MAT x10^3(ANC) (test 3.16 10*3/uL 1.88-7.09 code = 0258470576) IMM GRAN x10^3 (test code = <0.03 0.00-0.06 2931709536) LYMPH x10^3 (test code = 1.76 10*3/uL 1.32-3.29 731-0) MONO x10^3 (test code = 0.64 10*3/uL 0.33-0.92 742-7) EOS x10^3 (test code = 0.06 10*3/uL 0.03-0.39 711-2) BASO x10^3 (test code = 0.04 10*3/uL 0.01-0.07 704-7) GIANT PLATELETS (test code = Present See_Comment A [Automated message] The 5908-9) system which [employer] nerated this result transmit violet reference range: (none). The reference range was not u sed to interpret this result as normal/abnormal . Lab Interpretation (test Abnormal code = 23633-2) [facility] (13397)2021-06-09 16:42:47 Test Item Value Reference Range Interpretation Comments NA (test code = 134 mmol/L 135-145 L 8217898216) K (test code = 4.1 mmol/L 3.5-5.0 8721853389) CL (test code = 93 mmol/L 98-108 L 3954551218) CO2 TOTAL (test code = 31 mmol/L 23-31 0624033918) AGAP (test code = 2-16 7766571532) BUN (test code = 20 mg/dL 7-23 1416003607) GLUCOSE (test code = 104 mg/dL 70-110 5072352624) CREATININE (test code = 1.45 mg/dL 0.50-1.04 H 3214065886) TOTAL BILI (test code = 1.5 mg/dL 0.1-1.1 H 6557357534) CALCIUM (test code = 8.1 mg/dL 8.6-10.6 L 7045736023) T PROTEIN (test code = 8.0 g/dL 6.3-8.2 3843426139) ALBUMIN (test code = 4.4 g/dL 3.5-5.0 9055626329) ALK PHOS (test code = 118 U/L 34-122 8782336884) ALTv (test code = 47 U/L 5-35 H 1742-6) AST(SGOT) (test code = 97 U/L 13-40 H 9415129659) eGFR (test code = mL/min/1.73m2 9027570976) SHEKHAR (test code = SHEKHAR) Association of Glomerular Filtration Rate (GFR) and Staging of Kidney Disease* + --+ --+ ------+| GFR (mL/min/1.73 m2) ?| With Kidney Damage ?| ?Without Kidney Damage+ --------+ --------+ +| ?>90 ?| ?Stage one ?| ? Normal ?+ ---+ ---+ -------+| ?60-89 ?| ?Stage two ?| ? Decreased GFR ? + --+ --+ ------+| ?30-59 ?| ?Stage three ?| ? Stage three ? + --+ --+ ------+| ?15-29 ?| ?Stage four ? | ? Stage four ?+ ---+ ---+ -------+| ?<15 (or dialysis) ? ?| ?Stage five ? | ? Stage five ?+ ---+ ---+ -------+ *Each stage assumes the associated GFR level has been in effect for at least three months. ?Stages 1 to 5, with or without kidney disease, indicate chronic kidney disease. Notes: Determination of stages one and two (with eGFR >59mL/min/1.73 m2) requires estimation of kidney damage for at least three months as defined by structural or functional abnormalities of the kidney, manifested by either:Pathological abnormalities or Markers of kidney damage (including abnormalities in the composition of the blood or urine or abnormalities in imaging tests). Lab Interpretation Abnormal (test code = 35117-2) [facility] [id number] 16:04:45 Test Item Value Reference Range Interpretation Comments APTT Patient (test See_Comment [Automat ed code = 3173-2) message] The system which generated this result transmitted reference range : 23 - 38 Seconds . The reference range was not used to interpr et this result as normal/abnormal . SHEKHAR (test code = SHEKHAR) The [facility] patient population mean normal value for aPTT is 30 seconds. Lab Interpretation Normal (test code = 13825-5) [facility] / [id number] 16:02:44 Test Item Value Reference Range Interpretation Comments PROTIME PATIENT (test See_Comment H [Auto mated message] code = 5964-2) The system wh ich generated this result transmitted ref erence range: 12.0 - 1 4.7 Seconds. The reference range was not used to int erpret this result as normal/abnormal . INR (test code = 6301-6) Nor mal INR <1.1; Warfarin Therap eutic range 2.0 to 3. 0 or 2.5 to 3.5, dep ending upon the indica tions. Lab Interpretation (test Abnormal code = 44751-9) [facility], [id number] 05:58:33 Test Item Value Reference Range Interpretation Comments VIT D 25OH (test code = 43 ng/mL 25-80 84264-1) SHEKHAR (test code = SHEKHAR) Deficiency: <20 ng/mLInsufficiency : 20-24 ng/mLOptimal: 25-80 ng/mL Lab Interpretation (test Normal code = 36087-6) [facility]"
[2022-08-27 16:17] LABS: Absolute Lymphocytes (CBC) 2.1 K/uL (0.7-4.9); Hematocrit 48.1 % (36.0-45.0); Lymphocytes % 9.3 % (15.3-44.8); MCV 105.6 fL (80-100); MPV 8.1 fL (7.6-11.3); RBC Red Blood Cell Count 4.55 M/uL (3.86-4.86)
[2022-08-27 16:24] LABS: Blood Morphology Comment NOTED (NOT SEEN); Macrocytosis 1+; Platelet Estimate DECR; Protime INR 1.3; White Blood Cell Scan OK (OK)
[2022-08-27 16:40] LABS: Albumin 3.4 g/dL (3.4-5.0); Protein, Total 8.7 g/dL (6.4-8.2)
[2022-08-27 16:43] LABS: Potassium 3.7 mmol/L (3.5-5.1)
[2022-08-27] MEDS ORDERED: NA CHLORIDE 0.9% 2,000 ML ONE (17:03)
--- NOTE | 2022-08-27 18:04 | RAD REPORT ---
EXAM DESCRIPTION: [place]thon[place] Single View08/27/2022 4:41 pm CLINICAL HISTORY: DYSPNEA COMPARISON: <Comparisons> TECHNIQUE: Portable AP view of the chest. FINDINGS: The lungs are clear. No pneumothorax or effusion. The cardiomediastinal contours are unrem arkable. IMPRESSION: No acute cardiopulmonary process.
[2022-08-27 18:09] LABS: Urine Blood 3+ (Negative); Urine Glucose Negative (Negative); Urine Protein 3+ (Negative); Urine Specific Gravity 1.015 (1.005-1.030); Urine pH 6.5 (5.0-7.0)
--- NOTE | 2022-08-27 18:23 | RAD REPORT ---
EXAM DESCRIPTION: CT - Angio Aorta For Dissection - 08/27/2022 5:50 pm CLINICAL HISTORY: ABD PAIN COMPARISON: Head Brain Wo Cont dated 08/27/2022; CT ABD PELVIS W CONTRAST dated 05/19/2015 TECHNIQUE: Dynamically enhanced 3 mm thick images of the chest, abdomen, and upper pelvis were obtai armida during administration of approximately 95mL Isovue 370 IV contrast. Sagittal and coronal reconstr uctions as well as maximal intensity projection reconstruction were generated and reviewed per an [facility] tic angiography protocol. All CT scans are performed using dose optimization technique as appropriate and may include automated exposure control or mA/KV adjustment according to patient size. FINDINGS: Aorta is normal in diameter with no dissection or other acute aortic findings. Reconstruct ion images show no significant findings. Variant anatomy, with the left vertebral artery arising dire ctly as the third vessel of the arch. Pulmonary arteries are normal as well. No mass or infiltrate in the lung parenchyma. Bibasilar atelectatic changes, more so on the right. No pleural thickening, pleural effusion or pneumothorax. No abnormal mediastinal or hilar mass or lymphadenopathy seen. No chest wall mass or abnormal axillar y lymphadenopathy. Celiac, SMA and renal arteries show no suspicious findings. Solid abdominal viscera and bowel show no significant findings. No mass or abnormal lymphadenopathy. Inflammatory changes both at the pancreatic fat and pancreatic tail. Heterogeneous enhancement is not ed in both regions with adjacent fat stranding, however no discrete fluid collections are appreciated . 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 Pronounced changes of gastritis involving the fundus and body of the stomach with wall thickening, ru gal fold thickening, and mucosal hyperenhancement. Changes of duodenitis along the second part of the duodenum as well. Status post cholecystectomy. Prominent caliber of the common bile duct, up to 12 millimeter, could re late to postcholecystectomy status, however is nonspecific. Minimal enhancement along the proximal co mmon bile duct is noted. Please correlate for evidence of cholangitis. 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 Mild endplate compression fractures along the superior L2 endplate and inferior T12 endplate, probabl y chronic. No suspicious osseous lesions. Right hip asymmetric advanced osteoarthritic changes, with a moderate to large hip effusion, probably chronic. Vila catheter within the urinary bladder. . IMPRESSION: No acute abnormalities of the aorta. Changes suggestive of acute interstitial pancreatitis involving the pancreatic head as well as the pa ncreatic tail. No evidence of acute intra or peripancreatic collections. 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 Prominent caliber of the common bile duct, 12 millimeter, could relate to post cholecystectomy status . Minimal enhancement along the wall of the proximal common bile duct, raising concern for cholangiti s. Please correlate clinically. 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 Other incidental findings as a pam. The acute findings were communicated to Elia Montgomery on 08/27/2022 at 18:12 hours.
--- NOTE | 2022-08-27 18:25 | RAD REPORT ---
EXAM DESCRIPTION: CT - Head Brain Wo Cont - 08/27/2022 5:51 pm CLINICAL HISTORY: MENTAL STATUS CHANGE COMPARISON: No comparisons TECHNIQUE: Noncontrast head CT images ad were obtained without IV contrast. Multiplanar reformats we re generated and reviewed. All CT scans are performed using dose optimization technique as appropriate and may include automated exposure control or mA/KV adjustment according to patient size. FINDINGS: Moderate motion degradation limits evaluation. No intracranial hemorrhage, mass, or edema. Midline structures are unremarkable. Moderate diffuse parenchymal volume loss. No hydrocephalus. Milian-white matter differentiation is preserved, without evidence of acute infarct. No abnormal extra- axial fluid collections. Mastoid air cells and visualized portions of the paranasal sinuses are clear. No acute bony findings. IMPRESSION: No evidence of an acute intracranial process, within limits of motion degradation.
[2022-08-27] MEDS ORDERED: MORPHINE 4 MG/ML SYR ONE (19:44)
[2022-08-27] MEDS ORDERED: NA CHLORIDE 0.9% 100 ML ONE (19:44)
[2022-08-27] MEDS ORDERED: ONDANSETRON 4 MG/2 ML VIAL ONE (19:44)
[2022-08-27] MEDS ORDERED: PIPERACIL/TAZO 3.375 GM VIAL IV ONE (19:44)
[2022-08-27] MEDS ORDERED: NA CHLORIDE 0.9% 1,000 ML ONE (20:18)
--- NOTE | 2022-08-27 22:46 | EDPHYS ---
Physician Documentation [facility] Name: Aurora Kyle Age: 67 yrs Sex: Female : 1955 Arrival Date: 08/27/2022 Time: 15:52 Bed 4 Private MD: ED Physician Jayden Boyd HPI: 08/27 19:42 This 67 yrs old Female presents to ER via EMS with complaints of Altered Mental Status, kb Abdominal Pain, Nausea/Vomiting. 19:42 The patient presents with abdominal pain in the upper abdomen. Onset: The kb symptoms/episode began/occurred 1.5 week(s) ago. The symptoms do not radiate. Associated signs and symptoms: Pertinent positives: nausea, vomiting, and diarrhea, AMS. The symptoms are described as constant. Modifying factors: The symptoms are alleviated by nothing, the symptoms are aggravated by nothing. Severity of pain: At its worst the pain was moderate in the emergency department the pain is unchanged. The patient has experienced similar episodes in the past, a few times. The patient has not recently seen a physician. Historical: - Allergies: 16:39 No Known Allergies; iw - PMHx: 16:40 Pancreatitis; iw 16:40 breast cancer; iw - Immunization history:: Adult Immunizations. - Social history:: Smoking status: Patient reports the use of cigarette tobacco products. ROS: 19:35 Constitutional: Negative for fever, chills, and weight loss. kb 19:35 Abdomen/GI: Positive for abdominal pain, nausea, vomiting, and diarrhea. 19:35 All other systems are negative. Exam: 19:39 Head/Face: Normocephalic, atraumatic. ENT: Moist Mucous membranes Cardiovascular: kb Regular rate and rhythm with a normal S1 and S2. No gallops, murmurs, or rubs. No pulse deficits. Respiratory: Respirations even and unlabored. No increased work of breathing. Talking in full sentences Skin: Warm, dry with normal turgor. Normal color. MS/ Extremity: Pulses equal, no cyanosis. Neurovascular intact. Full, normal range of motion. 19:39 Constitutional: The patient appears alert, awake. 19:39 Abdomen/GI: Inspection: abdomen appears normal, Bowel sounds: normal, Palpation: soft, in all quadrants, mild abdominal tenderness, in the right lower quadrant and left lower quadrant, moderate abdominal tenderness, in the right upper quadrant and left upper quadrant. 19:39 Neuro: Orientation: to person, situation, Not oriented to place, time, Mentation: able to follow commands. Vital Signs: 15:59 BP 162 / 134; Pulse 106; Resp 33; Temp 97.9(O); Pulse Ox 97% on R/A; Weight 49.9 kg; ld1 Height 5 ft. 3 in. (160.02 cm); Pain 8/10; 16:49 BP 162 / 120; Pulse 109; Resp 23; Pulse Ox 98% on R/A; iw 17:11 BP 156 / 120; Pulse 100; Resp 28; Pulse Ox 97% on R/A; hb 18:09 BP 169 / 116; Pulse 91; Resp 27; Pulse Ox 97% on R/A; Pain 9/10; hb 20:18 BP 153 / 109; Pulse 104; Resp 17; Temp 98.2(O); Pulse Ox 95% on R/A; kd3 22:30 BP 180 / 166; Pulse 104; Resp 19; Temp 98.3(O); Pulse Ox 94% on R/A; kd3 22:57 BP 173 / 124; Pulse 102; Resp 20 S; Pulse Ox 94% on R/A; as6 15:59 Body Mass Index 19.49 (49.90 kg, 160.02 cm) ld1 MDM: 15:52 Patient medically screened. rn 16:00 ED course: Patient is a 67-year-old female who presents for nausea, vomiting, diarrhea kb and upper abdominal pain that started 1.5 weeks ago. EMS was called out today because symptoms got worse and patient became altered. On exam patient has moderate upper abdominal tenderness, mild lower abdominal tenderness. Patient awake, alert and following commands. Oriented to self and situation, but believes it is 1974. Serum labs, urinalysis and CT ordered. 18:47 ED course: Sepsis reevaluation complete. kb 19:35 Data reviewed: vital signs, nurses notes. kb 19:40 Differential Diagnosis: electrolyte abnormality, sepsis, volume depletion, kb Pancreatitis. Consideration of Admission/Observation Patient will be transferred. Management of patient was discussed with the following: Dr. Montgomery. Admission recommended but unable to get a hold of Dr. Melgar GI. Will transfer to facility with GI available.. Historians other than the Patient: EMS: [facility]. Counseling: I had a detailed discussion with the patient and/or guardian regarding: the historical points, exam findings, and any diagnostic results supporting the discharge/admit diagnosis, lab results, radiology results, the need to transfer to another facility. 19:47 Management of patient was discussed with the following: Freight Receiver: Discussed case with christa anderson. Recommends transfer. 20:45 Transition of care: After a detail discussion of the patient's case, care is kb transferred to Jayden Boyd MD. 20:46 ED course: Criteria for severe sepsis with septic shock met at 1826. Source of kb infection (A): Pancreatitis; SIRS criteria (B): Tachypnea, tachycardia, white blood cell count; organ dysfunction (C): Lactate 4.3, bili 3.0. Septic shock due to lactate 4.3. 08/27 15:56 Order name: Blood Culture Adult (2) 08/27 15:56 Order name: CBC with Diff; Complete Time: 16:32 kb 08/27 15:56 Order name: CMP; Complete Time: 16:44 kb 08/27 15:56 Order name: Lactate w/ 2H reflex if indic.; Complete Time: 16:44 kb 08/27 15:56 Order name: Protime (+inr); Complete Time: 16:32 kb 08/27 15:56 Order name: Ptt, Activated; Complete Time: 16:32 kb 08/27 15:56 Order name: Urine Microscopic Only kb 08/27 15:56 Order name: Chest Single View XRAY; Complete Time: 18:05 kb 08/27 15:56 Order name: EKG; Complete Time: 15:57 kb 08/27 15:56 Order name: Accucheck; Complete Time: 16:05 kb 08/27 15:56 Order name: Cardiac monitoring; Complete Time: 15:59 kb 08/27 15:56 Order name: EKG - Nurse/Tech; Complete Time: 17:11 kb 08/27 15:56 Order name: IV Saline Lock - Large Bore; Complete Time: 15:59 kb 08/27 15:56 Order name: Labs collected and sent; Complete Time: 16:43 kb 08/27 15:56 Order name: O2 Per Protocol; Complete Time: 15:59 kb 08/27 15:56 Order name: O2 Sat Monitoring; Complete Time: 15:59 kb 08/27 15:56 Order name: Urine Dipstick-Ancillary (obtain specimen); Complete Time: 18:12 kb 08/27 15:56 Order name: Vital Signs; Complete Time: 15:59 kb 08/27 15:56 Order name: CT Aorta for Dissection; Complete Time: 18:26 kb 08/27 15:56 Order name: CT Head Brain wo Cont; Complete Time: 18:26 kb 08/27 15:57 Order name: Lipase; Complete Time: 16:44 kb 08/27 16:16 Order name: Glucose, Ancillary Testing; Complete Time: 16:20 EDMS 08/27 16:25 Order name: CBC Smear Scan; Complete Time: 16:32 EDMS 08/27 17:04 Order name: Straight Cath; Complete Time: 17:10 kb 08/27 18:09 Order name: Urine Dipstick-Ancillary; Complete Time: 18:16 EDMS 08/27 19:50 Order name: SARS-COV-2 RT PCR 08/27 20:02 Order name: Vital Signs; Complete Time: 20:18 kb 08/27 20:54 Order name: SARS-COV-2 RT PCR; Complete Time: 20:55 EDMS 08/27 21:19 Order name: Lactate Sepsis 2 HR Follow-up; Complete Time: 21:31 EDMS Administered Medications: 17:10 Drug: NS 0.9% (30 ml/kg) 30 ml/kg Route: IV; Rate: bolus; Site: left antecubital; hb 23:18 Follow up: IV Status: Completed infusion kd3 19:49 Drug: morphine 4 mg Route: IVP; Infused Over: 4 mins; Site: left antecubital; pf1 23:18 Follow up: Response: No adverse reaction; Pain is decreased kd3 19:49 Drug: Zofran (Ondansetron) 4 mg Route: IVP; Site: left antecubital; pf1 23:18 Follow up: Response: No adverse reaction kd3 19:50 Drug: Zosyn (piperacillin-tazobactam) 3.375 grams Route: IVPB; Infused Over: 60 mins; pf1 Site: left antecubital; 23:18 Follow up: IV Status: Completed infusion kd3 20:18 Drug: NS 0.9% 1000 ml Route: IV; Rate: 125 ml/hr; Site: left forearm; kd3 23:18 Follow up: IV Status: Infusion continued kd3 Disposition: 22:45 Co-signature as Attending Physician, Jayden Boyd MD I reviewed the patient's care rt provided by the Advanced Practice Provider and agree with the diagnosis and treatment plan. Disposition Summary: 08/27/22 22:45 Transfer Ordered Transfer Location: Other Acute Care Facility rt Reason: Higher level of care rt Condition: Serious rt Problem: new rt Symptoms: have improved rt Accepting Physician: Ronny(08/27/22 23:18) kd3 Diagnosis - Pancreatitis rt - septic shock rt Forms: - Medication Reconciliation Form rt - SBAR form rt Signatures: Dispatcher [employer] EDMS Brianna Mcguire, DELINQUENCY PREVENTION OFFICER-C DELINQUENCY PREVENTION OFFICER-Carmel Koenig, RN KESHIA iw Elia Montgomery MD MD rn Baxter, Heather, RN RN hb Doucette, Kyli, RN RN kd3 Jayden Boyd MD MD rt Gloria jensen RN RN pf1 Corrections: (The following items were deleted from the chart) 19:49 16:00 ED course: Patient is a 67-year-old female who presents for nausea, vomiting, kb diarrhea and upper abdominal pain that started 1.5 weeks ago. EMS was called out today because symptoms got worse and patient became altered. On exam patient has moderate upper abdominal tenderness, mild lower abdominal tenderness. kb 23:18 22:45 Ronny rt kd3
--- NOTE | 2022-08-27 22:46 | ER ---
Nurse's Notes [facility] Name: Aurora Kyle Age: 67 yrs Sex: Female : 1955 Arrival Date: 08/27/2022 Time: 15:52 Bed 4 Private MD: Diagnosis: Pancreatitis;septic shock Presentation: 08/27 16:02 Chief complaint: EMS states: pt c/o abd pain, n/v/d X 1 week, not acting like her iw normal self, was hypotensive on scene 70's systolic, pt denies blood in stool or emesis. Coronavirus screen: At this time, the client does not indicate any symptoms associated with coronavirus-19. Ebola Screen: Patient negative for fever greater than or equal to 101.5 degrees Fahrenheit, and additional compatible Ebola Virus Disease symptoms Patient denies exposure to infectious person. Patient denies travel to an Ebola-affected area in the 21 days before illness onset. No symptoms or risks identified at this time. Initial Sepsis Screen: Does the patient meet any 2 criteria? RR > 20 per min. Altered Mental Status. HR > 90 bpm. Does the patient have a suspected source of infection? Yes: Acute abdominal pain. Risk Assessment: Do you want to hurt yourself or someone else? Patient reports no desire to harm self or others. Onset of symptoms was August 22, 2022. 16:02 Method Of Arrival: EMS: [facility] iw 16:02 Acuity: TARIK 2 iw Historical: - Allergies: 16:39 No Known Allergies; iw - PMHx: 16:40 Pancreatitis; iw 16:40 breast cancer; iw - Immunization history:: Adult Immunizations. - Social history:: Smoking status: Patient reports the use of cigarette tobacco products. Screenin:13 [facility] ED Fall Risk Assessment (Adult) Score/Fall Risk Level 3 or more points = High hb Risk Oriented to surroundings, Maintained a safe environment, Educated pt \T\ family on fall prevention, incl call for assistance when getting out of bed. Abuse screen: Denies threats or abuse. Denies injuries from another. Nutritional screening: No deficits noted. Tuberculosis screening: No symptoms or risk factors identified. Assessment: 16:10 General: Appears ill, Behavior is drowsy. Pain: Complains of pain in abdomen. Neuro: iw Level of Consciousness is lethargic, Oriented to person. Cardiovascular: Capillary refill is > 3 seconds in bilateral fingers. Respiratory: Respiratory effort is even, Respiratory pattern is regular. GI: Abdomen is round Abd is soft X 4 quads Abdomen is tender to palpation in right lower quadrant. Derm: Skin with poor turgor Skin is clammy, Skin is pale, Skin temperature is cool Bruising that is dark purple, on lateral aspect of right thigh. 16:37 Reassessment: at bedside. iw 17:12 Reassessment: No changes from previously documented assessment. Patient and/or family hb updated on plan of care and expected duration. Pain level reassessed. 18:09 Reassessment: No changes from previously documented assessment. Patient and/or family hb updated on plan of care and expected duration. Pain level reassessed. Vital Signs: 15:59 BP 162 / 134; Pulse 106; Resp 33; Temp 97.9(O); Pulse Ox 97% on R/A; Weight 49.9 kg; ld1 Height 5 ft. 3 in. (160.02 cm); Pain 8/10; 16:49 BP 162 / 120; Pulse 109; Resp 23; Pulse Ox 98% on R/A; iw 17:11 BP 156 / 120; Pulse 100; Resp 28; Pulse Ox 97% on R/A; hb 18:09 BP 169 / 116; Pulse 91; Resp 27; Pulse Ox 97% on R/A; Pain 9/10; hb 20:18 BP 153 / 109; Pulse 104; Resp 17; Temp 98.2(O); Pulse Ox 95% on R/A; kd3 22:30 BP 180 / 166; Pulse 104; Resp 19; Temp 98.3(O); Pulse Ox 94% on R/A; kd3 22:57 BP 173 / 124; Pulse 102; Resp 20 S; Pulse Ox 94% on R/A; as6 15:59 Body Mass Index 19.49 (49.90 kg, 160.02 cm) ld1 ED Course: 15:52 Patient arrived in ED. ld1 15:52 Elia Montgomery MD is Attending Physician. rn 15:53 Brianna Mcguire FNP-C is [facility]. kb 15:59 Erin Agarwal, KESHIA is Primary Nurse. ld1 16:00 Inserted saline lock: 20 gauge in right antecubital area, using aseptic technique. iw 16:04 Triage completed. iw 16:35 Vila cath inserted, using sterile technique, 16 Fr., by me. iw 16:43 Chest Single View XRAY In Process Unspecified. EDMS 16:49 Inserted saline lock: 20 gauge in left antecubital area, using aseptic technique. iw 16:49 Patient has correct armband on for positive identification. Placed in gown. Bed in low iw position. Side rails up X2. Adult w/ patient. Client placed on continuous cardiac and pulse oximetry monitoring. NIBP monitoring applied. 17:14 Arm band placed on. hb 17:35 Primary Nurse role handed off by Erin Agarwal, RN hb 17:35 Viola Olsen, RN is Primary Nurse. hb 17:52 CT Aorta for Dissection In Process Unspecified. EDMS 17:52 CT Head Brain wo Cont In Process Unspecified. EDMS 19:40 Initiated transfer with Leny. wm 20:11 SARS-COV-2 RT PCR Sent. kd3 20:41 Attending Physician role handed off by Elia Montgomery MD rt 20:41 Jayden Boyd MD is Attending Physician. rt 21:58 Pt accepted [facility] transfer to [facility] by Dr. Jefferson. wm 23:17 No provider procedures requiring assistance completed. Patient transferred, IV remains kd3 in place. Administered Medications: 17:10 Drug: NS 0.9% (30 ml/kg) 30 ml/kg Route: IV; Rate: bolus; Site: left antecubital; hb 23:18 Follow up: IV Status: Completed infusion kd3 19:49 Drug: morphine 4 mg Route: IVP; Infused Over: 4 mins; Site: left antecubital; pf1 23:18 Follow up: Response: No adverse reaction; Pain is decreased kd3 19:49 Drug: Zofran (Ondansetron) 4 mg Route: IVP; Site: left antecubital; pf1 23:18 Follow up: Response: No adverse reaction kd3 19:50 Drug: Zosyn (piperacillin-tazobactam) 3.375 grams Route: IVPB; Infused Over: 60 mins; pf1 Site: left antecubital; 23:18 Follow up: IV Status: Completed infusion kd3 20:18 Drug: NS 0.9% 1000 ml Route: IV; Rate: 125 ml/hr; Site: left forearm; kd3 23:18 Follow up: IV Status: Infusion continued kd3 Medication: 17:13 VIS not applicable for this client. hb Output: 23:24 Urine: 1500ml (Vila); Total: 1500ml. kd3 Outcome: 22:45 ER care complete, transfer ordered by . rt 23:17 Transferred by ground EMS to [facility]. kd3 23:17 Condition: stable 23:17 Discharge instructions given to patient, family, Instructed on the need for transfer, Demonstrated understanding of instructions. 23:18 Patient left the ED. kd3 Signatures: Dispatcher [employer] EDMS Brianna Mcguire, JAVA LEAD DEVELOPER-C JAVA LEAD DEVELOPER-Ckb Carmel Melendez, RN Elia Savage MD MD rn Baxter, Heather, RN RN hb Dibbern, Lauren RN RN ld1 Jennifer Hu Ashby, RN RN as6 Ada Horton RN RN kd3 Jayden Boyd MD MD rt Gloria jensen, RN RN pf1
[2022-08-28 01:33] VITALS: BP 119/73; TEMP 98; O2SAT 99
--- NOTE | 2022-08-28 14:31 | EKG ---
Test Date: 2022-08-27 Test Time: 17:06:34 Mold Filler And Drainer: HB MEASUREMENT RESULTS: Intervals: Rate: 104 WV: 204 QRSD: 80 QT: 340 QTc: 447 [place]: P: 57 WV: 204 QRS: 9 T: 74 INTERPRETIVE STATEMENTS: Sinus tachycardia Marked ST abnormality, possible inferior subendocardial injury Abnormal ECG Compared to ECG 05/19/2015 06:14:40 ST (T wave) deviation now present Sinus rhythm no longer present Electronically Signed On 08-28-22 14:29:00 HOME AND SCHOOL VISITOR by Ivan Castillo
== END 2022-08-27 23:18 ==
LOC: ER 15:48
DX: A41.9 Sepsis, unspecified organism (principal); K85.90 Acute pancreatitis without necrosis or infection, unspecified; R65.21 Severe sepsis with septic shock; Z20.822 Contact with and (suspected) exposure to COVID-19; Z72.0 Tobacco use
CPT/HCPCS: 96365; 93005; 87040 ×2; 85025; 36415; 85610; 82947; 83605 ×2; 85730; 81003; 83690; 80053; 70450; 71275; 74175; 71045; 51702; 96375; 99285; 96366; U0003; Q9967; J2543; J7030 ×2; J2405

== ENCOUNTER → 2023-09-19 | Emergency (ER) | payer OTHER ==
[~2023-09-19] MED LIST: Calcium Chloride 10% INJ SYR IV ONE; D50W 25 GM/50 ML SYRINGE IV ONE; EPINEPHrine 1 MG/10 ML SYR IV ONE
--- NOTE | 2023-09-19 08:57 | ER ---
Nurse's Notes [facility] Name: Aurora Kyle Age: 68 yrs Sex: Female : 1955 Arrival Date: 09/19/2023 Time: 08:35 Bed 3 Private MD: Diagnosis: Acute respiratory failure;Cardiac arrest due to other underlying condition Presentation: 09/18 08:30 Chief complaint: EMS states: Pt last seen normal at 10 pm last night, reports ph that he heard her snoring at approx 3-4 am, EMS called by pt was nit breathing when EMS arrived, asystole on monitor, Raffaele tube placed measuring , no IV access. Care prior to arrival: Assisted ventilation, CPR via thumper performed by EMS. Compressions began prior to arrival. 08:30 Acuity: TARIK 1 ph 08:30 Method Of Arrival: EMS: [facility] ph Historical: - PMHx: 08:54 breast cancer; Pancreatitis; ph 09:14 COPD; ph - Family history:: not pertinent. Screenin:04 Abuse screen:. ph Assessment: 08:30 CPR assessment: unresponsive, pupils fixed \T\ dilated, no respiratory effort, intubated, ph Ambu ventilation, cyanotic, dependent lividity noted. Cardiac rhythm is asystole. General: Appears slender. Neuro: Level of Consciousness is unresponsive. Cardiovascular: Capillary refill is > 3 seconds Rhythm is asystole. Respiratory: Airway is patent via oral intubation. Derm: Skin is mottled, pale, Skin temperature is warm. 08:33 Cardiovascular: Rhythm is asystole. ph 08:39 Cardiovascular: Rhythm is asystole. ph 08:42 Reassessment: TOD 0842. Cardiovascular: Rhythm is asystole. ph Vital Signs: 08:39 Temp 101(R); ph [place] Coma Score: 08:37 Eye Response: none(1). Motor Response: none(1). Verbal Response: none(1). Total: 3. ph ED Course: 08:35 Inserted saline lock: 22 gauge in left upper arm, using aseptic technique. Inserted ph saline lock: 18 gauge in right EJ, using aseptic technique. 08:38 Patient arrived in ED. eb 08:38 Jamil Khalil MD is Attending Physician. eb 08:39 Intubation: 7.5 Fr. ETT placed orally. Performed by Jamil Khalil MD Successful on ph first attempt. Placement verified by CO2 detector w/ + color change, auscultating bilateral breath sounds, Ventilated with Ambu bag. 08:[address] Khalil while talking to patient . eb 08:46 Luciana Ibanez, RN is Primary Nurse. ph 08:47 Police [place] called to page out Foundation Director manager secondary. eb 08:52 Triage completed. ph 08:54 Patient has correct armband on for positive identification. ph 08:56 Jamil Khalil MD is Pronouncing Provider. theresa Administered Medications: 08:35 Drug: EPINEPHrine 0.1mg/mL 1:10,000 1 mg IVP once Route: IVP; Site: left upper arm; ph 08:36 Drug: Sodium Bicarbonate 1 amp IVP once; (50 mL); equals 50 mEq Route: IVP; Site: right ph jugular; 08:37 Drug: EPINEPHrine 0.1mg/mL 1:10,000 1 mg IVP once Route: IVP; Site: left upper arm; ph 08:38 Drug: D50W 50 ml IVP once; (1 amp) Route: IVP; Site: right jugular; ph 08:39 Drug: EPINEPHrine 0.1mg/mL 1:10,000 1 mg IVP once Route: IVP; Site: left upper arm; ph 08:40 Drug: Calcium Chloride 1 grams IVP once Route: IVP; Site: left upper arm; ph 08:41 Drug: Sodium Bicarbonate 1 amp IVP once; (50 mL); equals 50 mEq Route: IVP; Site: left ph upper arm; Point of Care Testing: Blood Glucose: 08:37 Blood Glucose: 56 mg/dL; ph Ranges: Outcome: 08:42 Patient : Time of 08:42 Pronounced by Jamil Khalil MD ph 08:42 Condition: 10:50 Patient left the ED. iw Signatures: Jamil Khalil MD MD cha Williams, Irene, RN RN Luciana Ibanez RN RN Shona Wisdom
--- NOTE | 2023-09-19 08:57 | EDPHYS ---
Physician Documentation [facility] Name: Aurora Kyle Age: 68 yrs Sex: Female : 1955 Arrival Date: 09/19/2023 Time: 08:35 Bed 3 Private MD: ED Physician Jamil Khalil HPI: 09/18 08:51 This 68 yrs old Female presents to ER via Unassigned with complaints of CPR. theresa 08:51 Preceding the arrest, the patient collapsed, was found down by family. The arrest theresa occurred at home. Pre-hospital course: The arrest was not witnessed by others. Bystanders at the scene did not perform CPR. EMS care prior to arrival: initiation of ACLS, intubation oxygen, Time elapsed prior to ACLS is unknown. The patient has not experienced similar symptoms in the past. Historical: - PMHx: 08:54 breast cancer; Pancreatitis; ph 09:14 COPD; ph - Family history:: not pertinent. ROS: 08:52 Unable to obtain ROS due to cpr , unresponsive, theresa Exam: 08:52 Cardiovascular: Rate: actual rate is 0 bpm, Rhythm: asystole, Heart sounds: none, JVD: theresa is noted bilaterally, to 3 cm, 08:52 Respiratory: Respiratory rate: 0 08:52 Skin: Appearance: Color: pale, Vital Signs: 08:39 Temp 101(R); ph [place] Coma Score: 08:37 Eye Response: none(1). Motor Response: none(1). Verbal Response: none(1). Total: 3. ph Procedures: 09:08 Intubation: Intubated orally using # 4 Bonnie blade with 7.5 mm ETT. was successful theresa on first attempt. Ventilated with Ambu bag. Tube secured at right side of mouth measured 22 cm at lip. Placement verified by CO2 detector with (+) color change, auscultating bilateral breath sounds. Peripheral line: by aseptic technique a peripheral line was placed in the right external jugular vein, left ac. MDM: 08:47 Patient medically screened. theresa 08:55 Differential diagnosis: arrythmia, cardiac arrest, respiratory arrest, traumatic theresa injury, overdose, asphyxiation, renal failure. Data reviewed: vital signs, nurses notes, EMS record. Consideration of Admission/Observation Escalation of care including admission/observation considered. I considered the following discharge prescriptions or medication management in the emergency department Medications were administered in the Emergency Department. See MAR. Care significantly affected by the following chronic conditions: Cancer, htn. pancreatitis. Counseling: I had a detailed discussion with the patient and/or guardian regarding the historical points, exam findings, and any diagnostic results supporting the discharge/admit diagnosis. Administered Medications: 08:35 Drug: EPINEPHrine 0.1mg/mL 1:10,000 1 mg IVP once Route: IVP; Site: left upper arm; ph 08:36 Drug: Sodium Bicarbonate 1 amp IVP once; (50 mL); equals 50 mEq Route: IVP; Site: right ph jugular; 08:37 Drug: EPINEPHrine 0.1mg/mL 1:10,000 1 mg IVP once Route: IVP; Site: left upper arm; ph 08:38 Drug: D50W 50 ml IVP once; (1 amp) Route: IVP; Site: right jugular; ph 08:39 Drug: EPINEPHrine 0.1mg/mL 1:10,000 1 mg IVP once Route: IVP; Site: left upper arm; ph 08:40 Drug: Calcium Chloride 1 grams IVP once Route: IVP; Site: left upper arm; ph 08:41 Drug: Sodium Bicarbonate 1 amp IVP once; (50 mL); equals 50 mEq Route: IVP; Site: left ph upper arm; Point of Care Testing: Blood Glucose: 08:37 Blood Glucose: 56 mg/dL; ph Ranges: Critical Glucose Levels:Adult <50 mg/dl or >400 mg/dl <40 mg/dl or >180 mg/dl Disposition: 09:09 Critical Care:. theresa Disposition Summary: 09/19/23 08:57 Patient Notes: Location: [facility] theresa Pronouncing Physician: Jamil Khalil cha Time of : 08:42 09/19/2023 theresa Diagnosis - Acute respiratory failure theresa - Cardiac arrest due to other underlying condition theresa Critical care time excluding procedures: 09:09 Critical care time: Bedside Care: 25 minutes, Consultation: 5 minutes, Family theresa Intervention: 10 minutes. Total time: 40 minutes Signatures: Jamil Khalil MD MD cha Hall, Patricia, RN RN ph
[2023-09-19 11:35] VITALS: TEMP 101
== END ==
LOC: ER 08:35
DX: J96.00 Acute respiratory failure, unspecified whether with hypoxia or hypercapnia (principal); I46.8 Cardiac arrest due to other underlying condition; Z85.3 Personal history of malignant neoplasm of breast
CPT/HCPCS: 82947; 31500; 92950 ×3; 99285; J0171